=== PATIENT | male | born 1950 | race Caucasian/White ===

== ENCOUNTER 2022-01-01 16:10 | Emergency (ER) | payer MEDICARE, OTHER ==
[~2022-01-01] VITALS: Ht 175.3 cm; Wt 74.8 kg
[~2022-01-01 16:10] MED LIST: ATORVASTATIN CA80 MG; BAYER CHEWABLE81 MG PO; FISH OIL 1,0001 EAC5 PO; MINOCYCLINE HCL50 MG PO; MOVE FREE JOIN1 EACH PO; MULTI-DAY PLUS1 EACH PO; OSTERA TABLET1 EACH PO; PRESERVISION A1 EAC3 PO; PRILOSEC OTC20 MG PO; ZESTRIL10 MG PO
--- NOTE | 2022-01-02 06:43 | EKG ---
[facility] [address] [place] [address] Signed Normal sinus rhythm Normal ECG When compared with ECG of 31-DEC-2021 07:46, Incomplete right bundle branch block is no longer present Confirmed by BATSHEVA LARKIN MD ([id number]) on 01/02/2022 6:43:16 AM Electronically Signed By: BATSHEVA LARKIN MD 01/02/22 [id number] PATIENT NAME: ABIGAILSHAHRAM BRENNAN Electrocardiogram DATE OF : 50 PHYSICIAN: BATSHEVA LARKIN MD REPORT #: [id number] REPORT IS CONFIDENTIAL AND NOT TO BE RELEASED WITHOUT AUTHORIZATION
== END 2022-01-02 01:14 | disposition home or self-care (01) ==
LOC: ED 16:10
DX: K92.2 Gastrointestinal hemorrhage, unspecified (principal); D64.9 Anemia, unspecified; I25.10 Atherosclerotic heart disease of native coronary artery without angina pectoris; Z79.899 Other long term (current) drug therapy; Z79.82 Long term (current) use of aspirin
CPT/HCPCS: 36415; 80053; 80503; 83735; 84484; 85025; 86850; 86900; 86901; 86922; 93005; 93010; 99284-25